=== PATIENT | male | born 1980 | race Caucasian/White ===

== ENCOUNTER 2021-11-12 08:26 | Emergency (ER) | payer BC, OTHER ==
[~2021-11-12] VITALS: Ht 175.3 cm; Wt 81.7 kg
== END 2021-11-12 11:43 | disposition home or self-care (01) ==
LOC: ED 08:26
DX: R60.0 Localized edema (principal); B09 Unspecified viral infection characterized by skin and mucous membrane lesions; M25.562 Pain in left knee; M19.90 Unspecified osteoarthritis, unspecified site
CPT/HCPCS: 36415; 80048; 85025; 93971; 99284-25